=== PATIENT | female | born 1985 | race Caucasian/White ===

== ENCOUNTER 2016-12-30 13:05 | Emergency (ER) | payer MEDICAID ==
[~2016-12-30] VITALS: Ht 157.5 cm; Wt 101.6 kg
[2016-12-30 13:39] VITALS: BP 113/79
--- NOTE | 2016-12-30 14:10 | NUR ---
PT. PRESENTS TO THE ED WITH C/O REDNESS, IRRITATION, AND SMALL BUMPS BETWEEN AND UNDER BREASTS, PT. STATES SHE NOTICED IT STARTING 2-3 WEEKS AGO, NO VISIBLE SIGNS OF DISTRESS NOTED, BREATHING EVEN AND UNLABORED, AAOX4, AMBULATORY, GAIT STEADY
[2016-12-30 14:44] VITALS: BP 113/79
--- NOTE | 2016-12-30 14:45 | NUR ---
Patient discharged with v/s stable. Written and verbal after care instructions given and explained. Patient alert, oriented and verbalized understanding of instructions. Ambulatory with steady gait. All questions addressed prior to discharge. ID band removed. Patient advised to follow up with PMD. Rx of CLOTRIMAZOLE TOPICAL CREAM, KEFLEX, AND BACITRACIN TOPICAL OINTMENT given. Patient educated on indication of medication including possible reaction and side effects. Opportunity to ask questions provided and answered.
== END 2016-12-30 14:45 | disposition home or self-care (01) ==
LOC: MED 13:05
DX: L98.499 Non-pressure chronic ulcer of skin of other sites with unspecified severity (principal); J45.909 Unspecified asthma, uncomplicated
CPT/HCPCS: 81002; 81025; 99283

== ENCOUNTER 2017-06-10 15:03 | Emergency (ER) | payer SELFPAY ==
[~2017-06-10] VITALS: Ht 160 cm; Wt 96.6 kg
[2017-06-10 15:19] VITALS: BP 125/83
--- NOTE | 2017-06-10 16:07 | NUR ---
PT AMUBLUATED TO BED 7
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
--- NOTE | 2017-06-10 16:15 | NUR ---
Patient being evaluated by physician at bedside.
[2017-06-10] MEDS ORDERED: KETOROLAC 60 MG/2 ML VIAL IM ONE (16:20)
--- NOTE | 2017-06-10 16:37 | NUR ---
PT WENT TO X-RAY VIA WHEELCHAIR WITH CTRS.
[2017-06-10 17:15] VITALS: BP 119/72
--- NOTE | 2017-06-10 17:15 | NUR ---
Patient discharged with v/s stable. Written and verbal after care instructions given and explained. Patient alert, oriented and verbalized understanding of instructions. Ambulatory with steady gait. All questions addressed prior to discharge. ID band removed. Patient advised to follow up with PMD. Rx of TRAMADOL 50MG TABLETS given. Patient educated on indication of medication including possible reaction and side effects. Opportunity to ask questions provided and answered.
== END 2017-06-10 17:15 | disposition home or self-care (01) ==
LOC: MED 15:03
DX: S16.1XXA Strain of muscle, fascia and tendon at neck level, initial encounter (principal); R03.0 Elevated blood-pressure reading, without diagnosis of hypertension; J45.909 Unspecified asthma, uncomplicated; V49.49XA Driver injured in collision with other motor vehicles in traffic accident, initial encounter; Y93.89 Activity, other specified; Y92.89 Other specified places as the place of occurrence of the external cause; Y99.8 Other external cause status
CPT/HCPCS: 72040; 81025; 96372; 99284; J1885

== ENCOUNTER 2019-10-24 23:13 | Emergency (ER) | payer SELFPAY ==
[~2019-10-24] VITALS: Ht 157.5 cm; Wt 102.1 kg
[2019-10-24 23:17] VITALS: BP 100/59
--- NOTE | 2019-10-24 23:26 | NUR ---
PT AMBULATED MELBA
--- NOTE | 2019-10-24 23:30 | NUR ---
34/F PRESENTS TO ED, C/O SOB X2 DAYS. REPORTS COUGH X5 DAYS. PT AWAKE AND ALERT, SKIN NORMAL COLOR WARM AND DRY, RR EVEN AND MILDLY LABORED. MILD WHEEZE EXPIRATORY ON BL LUNGS. HX ASTHMA RX ALBUTEROL INH WITHOUT RELIEF
[2019-10-24] MEDS ORDERED: ALBUTEROL SULFATE/IPRATROPIU 3 ML SOL IH ONE (23:50)
[2019-10-25] MEDS ORDERED: predniSONE 20 MG TAB PO ONE (00:05)
[2019-10-25 00:30] VITALS: BP 132/87
--- NOTE | 2019-10-25 00:30 | NUR ---
Patient discharged with v/s stable. Written and verbal after care instructions given and explained. Patient alert, oriented and verbalized understanding of instructions. Ambulatory with steady gait. All questions addressed prior to discharge. ID band removed. Patient advised to follow up with PMD. Rx of PREDNISONE, ALBUTEROL WAS given. Patient educated on indication of medication including possible reaction and side effects. Opportunity to ask questions provided and answered. DR. CAMPOS ASSESSED AND D/C PT
== END 2019-10-25 00:30 | disposition home or self-care (01) ==
LOC: MED 23:13
DX: J45.901 Unspecified asthma with (acute) exacerbation (principal)
CPT/HCPCS: 94640; 99283; J7512; J7620

== ENCOUNTER 2020-09-03 08:24 | Emergency (ER) | payer SELFPAY ==
[~2020-09-03] VITALS: Ht 157.5 cm; Wt 99.3 kg
[2020-09-03 08:31] VITALS: BP 113/61
--- NOTE | 2020-09-03 08:35 | NUR ---
PT C/O SOB, PRODUCTIVE COUGH, CHEST CONGESTION FOR 5 DAYS. DENIES FEVER, N/V/D. REPORTS HAS EXPOSURE AT WORK. PMH: DENIES
[2020-09-03 09:14] VITALS: BP 110/58
--- NOTE | 2020-09-03 09:14 | NUR ---
Patient discharged with v/s stable. Written and verbal after care instructions given and explained. Patient alert, oriented and verbalized understanding of instructions. Ambulatory with steady gait. All questions addressed prior to discharge. ID band removed. Patient advised to follow up with PMD. Rx of Prednisone, Albuterol, AeroChamber plus mask given. Patient educated on indication of medication including possible reaction and side effects. Opportunity to ask questions provided and answered.
== END 2020-09-03 09:14 | disposition home or self-care (01) ==
LOC: MED 08:24
DX: J45.909 Unspecified asthma, uncomplicated (principal); F12.90 Cannabis use, unspecified, uncomplicated; Z20.828 Contact with and (suspected) exposure to other viral communicable diseases
CPT/HCPCS: 99283; U0003

== ENCOUNTER 2020-09-27 08:15 | Emergency (ER) | payer MEDICAID, SELFPAY ==
[~2020-09-27] VITALS: Ht 157.5 cm; Wt 97.5 kg
[2020-09-27] MEDS ORDERED: predniSONE 20 MG TAB PO ONE (08:40)
[2020-09-27] MEDS ORDERED: BENZONATATE 100 MG CAPLF PO SCH (08:40)
[2020-09-27 09:35] VITALS: BP 117/80
[2020-09-27 09:38] VITALS: BP 117/80
--- NOTE | 2020-09-27 09:38 | NUR ---
Patient discharged with v/s stable. Written and verbal after care instructions given and explained. Patient alert, oriented and verbalized understanding of instructions. Ambulatory with steady gait. All questions addressed prior to discharge. ID band removed. Patient advised to follow up with PMD. Rx of Prednisone, QVAR given. Patient educated on indication of medication including possible reaction and side effects. Opportunity to ask questions provided and answered.
== END 2020-09-27 09:38 | disposition home or self-care (01) ==
LOC: MED 08:15
DX: J45.901 Unspecified asthma with (acute) exacerbation (principal)
CPT/HCPCS: 71046; 99283; J7512

== ENCOUNTER 2021-05-09 15:04 | Emergency (ER) | payer MEDICAID ==
[~2021-05-09] VITALS: Ht 157.5 cm; Wt 99.3 kg
[2021-05-09 15:22] VITALS: BP 128/76
--- NOTE | 2021-05-09 15:32 | NUR ---
BIB SELF C/O 05/12 RLQ ABDOMINAL PAIN, NAUSEA X 2 DAYS. DENIES DYSURIA PMH: ASTHMA
[2021-05-09] MEDS ORDERED: fentaNYL citrate 0.05 MG/ML VIAL ONE (15:53)
[2021-05-09] MEDS ORDERED: KETOROLAC 30 MG/ML VIAL IM ONE (16:00)
[2021-05-09 16:59] LABS: BASOPHILS # (AUTO) 0.1 K/uL (0.00-0.22); BASOPHILS % (AUTO) 0.5 % (0.0-2.0); EOSINOPHILS # (AUTO) 0.1 K/uL (0-0.4); EOSINOPHILS % (AUTO) 1.4 % (0.0-4.0); HEMATOCRIT 38.9 % (36-48); HEMOGLOBIN 12.9 g/dL (12.0-16.0); LYMPHOCYTES # (AUTO) 1.3 K/uL (2.5-16.5); LYMPHOCYTES % (AUTO) 13.3 % (20.5-51.1); MEAN CORPUSCULAR HEMOGLOBIN 28 pg (27-31); MEAN CORPUSCULAR HGB CONC 33 g/dL (33-37); MEAN CORPUSCULAR VOLUME 83.1 fL (80-94); MONOCYTES # (AUTO) 0.7 K/uL (0.8-1.0); NEUTROPHILS # (AUTO) 7.6 K/uL (1.8-7.7); NEUTROPHILS % (AUTO) 77.8 % (42.2-75.2); PLATELET COUNT (AUTO) 307 K/uL (140-450); RED BLOOD CELL COUNT(AUTO) 4.68 MIL/uL (4.20-5.40); RED CELL DISTRIBUTION WIDTH 14.8 % (11.6-13.7); WHITE BLOOD COUNT (AUTO) 9.8 K/uL (4.8-10.8)
[2021-05-09 17:06] LABS: APPEARANCE,URINE SL CLOUDY (CLEAR); BILIRUBIN,URINE NEGATIVE (NEGATIVE); BLOOD, URINE TRACE-I (NEGATIVE); COLOR,URINE YELLOW (YELLOW); LEUKOCYTE ESTERASE ,URINE 1+ (NEGATIVE); NITRITE, URINE NEGATIVE (NEGATIVE); PH,URINE 6.5 (5.0-9.0); UGLUCOSE NEGATIVE (NEGATIVE)
[2021-05-09 17:15] LABS: ALBUMIN 3.5 g/dL (3.4-5.0); ANION GAP 12.7 (8-16); CARBON DIOXIDE 28.2 mmol/L (21-32); CREATININE 0.6 mg/dL (0.6-1.3); POTASSIUM 3.9 mmol/L (3.5-5.1); TOTAL BILIRUBIN 0.3 mg/dL (0.0-1.0)
[2021-05-09 17:31] LABS: RBC,URINE 0-5 /HPF (0-5); WBC,URINE 16-25 (MOD) /HPF (0-5)
[2021-05-09] MEDS ORDERED: ALBUTEROL HFA MDI 90 MCG/ACTUATION 8 GM INH ONE (17:50)
[2021-05-09] MEDS ORDERED: MORPHINE SULFATE 4 MG/ML SYR IM ONE (17:50)
--- NOTE | 2021-05-09 18:10 | NUR ---
Note francy in EDM - 05/09/21 at 1840 by DANN anxiety decreased, pain resolved to 11/12. Dr Arroyo spoke with patient at length. Agrees to discharge.
--- NOTE | 2021-05-09 18:30 | NUR ---
Note undone in EDM - 05/09/21 at 1840 by DANN Patient discharged with v/s stable. Written and verbal after care instructions given and explained. Patient alert, oriented and verbalized understanding of instructions. Ambulatory with steady gait. All questions addressed prior to discharge. ID band removed. Patient advised to follow up with PMD. Rx of Ativan, Protonix given. Patient educated on indication of medication including possible reaction and side effects. Opportunity to ask questions provided and answered.
--- NOTE | 2021-05-09 18:31 | NUR ---
PT AMBULATED TO ER BED 9.
--- NOTE | 2021-05-09 18:47 | NUR ---
first contact with this patient, patient is c/o epigastric pain, evaluation has been completed, medicated with Morphine 4mg IM RD, observed for effect and/or reaction.
--- NOTE | 2021-05-09 19:17 | NUR ---
Dr. Arroyo examining patient.
[2021-05-09] MEDS ORDERED: IBUP-2213 PO (19:23)
[2021-05-09] MEDS ORDERED: HYDR-5191 PO (19:23)
[2021-05-09] MEDS ORDERED: ALBU0.0912 IH ×2 (19:49→19:50)
[2021-05-09 20:44] VITALS: BP 126/81
--- NOTE | 2021-05-09 20:46 | NUR ---
Patient discharged with v/s stable. Written and verbal after care instructions given and explained. Patient alert, oriented and verbalized understanding of instructions. Ambulatory with steady gait. All questions addressed prior to discharge. ID band removed. Patient advised to follow up with PMD. Rx of VENTOLIN, MOTRIN, NORCO given. Patient educated on indication of medication including possible reaction and side effects. Opportunity to ask questions provided and answered.
== END 2021-05-09 20:46 | disposition home or self-care (01) ==
LOC: MED 15:04
DX: D36.7 Benign neoplasm of other specified sites (principal); R10.2 Pelvic and perineal pain
CPT/HCPCS: 36415; 74176; 76856; 80053; 81001; 81025; 85025; 87086; 93976; 96372; 99285; J1885; J2270; J3010

== ENCOUNTER 2021-05-24 03:47 | Emergency (ER) | payer MEDICAID ==
[~2021-05-24] VITALS: Ht 162.6 cm; Wt 99.3 kg
[~2021-05-24 03:47] MED LIST: ALBU0.0912 IH; HYDR-5191 PO; IBUP-2213 PO
[2021-05-24 03:53] VITALS: BP 136/69
[2021-05-24] MEDS: HYDROcodone/APAP 10/325 MG 1 TAB TAB PO ONE (04:47)
[2021-05-24] MEDS: KETOROLAC 60 MG/2 ML VIAL IM ONE (04:48)
[2021-05-24 05:06] VITALS: BP 136/69
--- NOTE | 2021-05-24 05:06 | NUR ---
Patient discharged with v/s stable. Written and verbal after care instructions given and explained. Patient verbalized understanding and states her transport to go home is in parking lot. Ambulatory with steady gait. All questions addressed prior to discharge. Advised to follow up with PMD.
== END 2021-05-24 05:06 | disposition home or self-care (01) ==
LOC: MED 03:47
DX: R10.2 Pelvic and perineal pain (principal); R19.09 Other intra-abdominal and pelvic swelling, mass and lump; J45.909 Unspecified asthma, uncomplicated; Z79.899 Other long term (current) drug therapy
CPT/HCPCS: 81002; 81025; 96372; 99283; J1885

== ENCOUNTER 2021-08-20 08:46 | Emergency (ER) | payer MEDICAID, OTHER ==
[~2021-08-20] VITALS: Ht 157.5 cm; Wt 100.7 kg
[2021-08-20 08:48] VITALS: BP 136/108
--- NOTE | 2021-08-20 09:13 | NUR ---
35yo f, with hx of left ovarian cyst, c/o hypogastric pain x 2 months with pain worsening yesterday. 8/10, sharp, non-radiating, that is felt like cramping/bloating/sharp like pain. Pt also complains of postprandial nausea. reports menstrual period shortened to 3-4 days from 5-7 days. no meds taken for pain. pt denies any SOB, chest pain, vomitting/diarrhea at this time. pt stated she has experinced pain before, but "stated this pain is worse than before." bowel sounds active at this time, but pt is gaudring and tenderness noted of abdomen lmp: jul 18, 2021 pmh: asthma, left ovarian cyst meds: none
--- NOTE | 2021-08-20 09:20 | NUR ---
us tech bedside with patient
--- NOTE | 2021-08-20 09:26 | NUR ---
BEDSIDE EVALUATING PT
[2021-08-20] MEDS ORDERED: HYDROcodone/APAP 5/325 MG 1 TAB TAB PO ONE (09:30)
[2021-08-20] MEDS ORDERED: KETOROLAC 30 MG/ML VIAL IM ONE (09:30)
--- NOTE | 2021-08-20 10:17 | NUR ---
PT STATED PAIN RELIEF FROM MEDICATIONS AND CURRENT PAIN IS 1/10
[2021-08-20] MEDS ORDERED: NAPR-54 PO (11:20)
[2021-08-20] MEDS ORDERED: ACET-8386 PO (11:20)
--- NOTE | 2021-08-20 11:21 | NUR ---
Patient appears to be resting comfortably in bed. Vital Signs within normal limits. Respirations even and unlabored.
[2021-08-20 11:31] VITALS: BP 105/63
--- NOTE | 2021-08-20 11:31 | NUR ---
Patient discharged with v/s stable. Written and verbal after care instructions given and explained. Patient alert, oriented and verbalized understanding of instructions. Ambulatory with steady gait. All questions addressed prior to discharge. ID band removed. Patient advised to follow up with PMD. Rx of NAPROXEN AND HYROCODONE/ACETAMINOPHEN given. Patient educated on indication of medication including possible reaction and side effects. Opportunity to ask questions provided and answered.
== END 2021-08-20 11:31 | disposition home or self-care (01) ==
LOC: MED 08:46
DX: N83.202 Unspecified ovarian cyst, left side (principal); J45.909 Unspecified asthma, uncomplicated; F12.90 Cannabis use, unspecified, uncomplicated; Z79.899 Other long term (current) drug therapy
CPT/HCPCS: 76830; 76856; 81002; 81025; 93976; 96372; 99284; J1885; Q0092

== ENCOUNTER 2022-03-31 15:05 | Emergency (ER) | payer OTHER ==
[~2022-03-31] VITALS: Ht 157.5 cm; Wt 104.3 kg
[~2022-03-31 15:05] MED LIST changes: +ACET-8386 PO; +NAPR-54 PO
[2022-03-31 15:28] VITALS: BP 119/77
[2022-03-31] MEDS ORDERED: ALBU0.0912 IH (15:50)
[2022-03-31] MEDS ORDERED: SUD30 PO (15:50)
[2022-03-31] MEDS ORDERED: [UNRECOGNIZED DRUG - CODE] NS (16:01)
[2022-03-31 16:27] VITALS: BP 112/74
--- NOTE | 2022-03-31 16:28 | NUR ---
Patient discharged with v/s stable. Written and verbal after care instructions given and explained. Patient alert, oriented and verbalized understanding of instructions. Ambulatory with steady gait. All questions addressed prior to discharge. ID band removed. Patient advised to follow up with PMD. Rx of PROVENTIL, NASAL DECONGESTANT, SUDAFED given. Patient educated on indication of medication including possible reaction and side effects. Opportunity to ask questions provided and answered.
== END 2022-03-31 16:27 | disposition home or self-care (01) ==
LOC: MED 15:05
DX: R09.81 Nasal congestion (principal); J45.909 Unspecified asthma, uncomplicated; Z76.0 Encounter for issue of repeat prescription
CPT/HCPCS: 99283

== ENCOUNTER 2023-01-04 12:53 | Emergency (ER) | payer OTHER ==
[~2023-01-04] VITALS: Ht 157.5 cm; Wt 111.1 kg
[~2023-01-04 12:53] MED LIST changes: -ACET-8386 PO; +ACET-8905 PO; +SUD30 PO; +[UNRECOGNIZED DRUG - CODE] NS
[2023-01-04 13:06] VITALS: BP 122/63
--- NOTE | 2023-01-04 13:09 | NUR ---
PATIENT AMBULATED TO BED 6.
--- NOTE | 2023-01-04 13:36 | NUR ---
MD at bedside evaluating the patient
[2023-01-04] MEDS ORDERED: ALBUTEROL 0.083% 2.5 MG/3 ML NEBU INH ONE (13:40)
[2023-01-04] MEDS ORDERED: IPRATROPIUM 0.02% 0.5 MG/2.5 ML NEBU INH ONE (13:40)
[2023-01-04] MEDS ORDERED: predniSONE 20 MG TAB PO ONE (13:40)
[2023-01-04] MEDS ORDERED: [UNRECOGNIZED DRUG - CODE] PO (14:04)
[2023-01-04] MEDS ORDERED: ALBU0.0912 INH (14:04)
[2023-01-04] MEDS ORDERED: PRED20TA5 PO (14:04)
[2023-01-04 14:27] VITALS: BP 122/63
--- NOTE | 2023-01-04 14:28 | NUR ---
Patient discharged with v/s stable. Written and verbal after care instructions given and explained. Patient alert, oriented and verbalized understanding of instructions. Ambulatory with steady gait. All questions addressed prior to discharge. ID band removed. Patient advised to follow up with PMD. Rx of albuterol, cetirizine, prednisone given. Patient educated on indication of medication including possible reaction and side effects. Opportunity to ask questions provided and answered.
== END 2023-01-04 14:28 | disposition home or self-care (01) ==
LOC: MED 12:53
DX: J45.901 Unspecified asthma with (acute) exacerbation (principal); R03.0 Elevated blood-pressure reading, without diagnosis of hypertension
CPT/HCPCS: 94640; 94760; 99283; J7512; J7613; J7644

== ENCOUNTER 2023-07-15 03:55 | Emergency (ER) | payer OTHER ==
[~2023-07-15] VITALS: Ht 157.5 cm; Wt 99.8 kg
[~2023-07-15 03:55] MED LIST changes: +ALBU0.0912 INH; +PRED20TA5 PO; +[UNRECOGNIZED DRUG - CODE] PO
[2023-07-15 04:03] VITALS: BP 118/63; PULSE 80; RESP 16; TEMP 96.8; O2SAT 100
[2023-07-15] MEDS ORDERED: diphenhydrAMINE 50 MG/ML VIAL IVP ONE (04:15)
[2023-07-15] MEDS ORDERED: NACL 0.9% 2,000 ML IV ONE (04:15)
[2023-07-15] MEDS ORDERED: KETOROLAC 30 MG/ML VIAL IVP ONE (04:15)
[2023-07-15] MEDS ORDERED: PROCHLORPERAZINE 10 MG/2 ML VIAL IVP ONE (04:15)
[2023-07-15 04:54] LABS: BASOPHILS # (AUTO) 0.1 K/uL (0.00-0.22); BASOPHILS % (AUTO) 0.7 % (0.0-2.0); EOSINOPHILS % (AUTO) 0.3 % (0.0-4.0); HEMATOCRIT 36.7 % (36-48); HEMOGLOBIN 12.1 g/dL (12.0-16.0); LYMPHOCYTES # (AUTO) 2.5 K/uL (2.5-16.5); LYMPHOCYTES % (AUTO) 17.7 % (20.5-51.1); MEAN CORPUSCULAR HEMOGLOBIN 25 pg (27-31); MEAN CORPUSCULAR HGB CONC 33 g/dL (33-37); MEAN CORPUSCULAR VOLUME 74.5 fL (80-94); MONOCYTES # (AUTO) 0.6 K/uL (0.8-1.0); MONOCYTES % (AUTO) 3.9 % (1.7-9.3); NEUTROPHILS # (AUTO) 11.1 K/uL (1.8-7.7); NEUTROPHILS % (AUTO) 77.4 % (42.2-75.2); PLATELET COUNT (AUTO) 438 K/uL (140-450); RED BLOOD CELL COUNT(AUTO) 4.93 MIL/uL (4.20-5.40); RED CELL DISTRIBUTION WIDTH 16.6 % (11.6-13.7); WHITE BLOOD COUNT (AUTO) 14.3 K/uL (4.8-10.8)
[2023-07-15 05:09] LABS: ANION GAP 22.9 (8-16); CALCIUM 9.6 mg/dL (8.5-10.1); CARBON DIOXIDE 22.9 mmol/L (21-32); CREATININE 0.8 mg/dL (0.6-1.3); POTASSIUM 3.8 mmol/L (3.5-5.1); TOTAL BILIRUBIN 0.5 mg/dL (0.0-1.0)
[2023-07-15 07:05] LABS: APPEARANCE,URINE CLEAR (CLEAR); BILIRUBIN,URINE NEGATIVE (NEGATIVE); BLOOD, URINE NEGATIVE (NEGATIVE); COLOR,URINE YELLOW (YELLOW); LEUKOCYTE ESTERASE ,URINE NEGATIVE (NEGATIVE); NITRITE, URINE NEGATIVE (NEGATIVE); PROTEIN,URINE 1+ (NEGATIVE); UGLUCOSE NEGATIVE (NEGATIVE); UROBILINOGEN,URINE 0.2 EU/dL (0.2 - 1)
[2023-07-15 07:27] LABS: AMPHETAMINE, URINE NEGATIVE ng/ml (NEG <=1000); BARBITURATE, URINE NEGATIVE ng/ml (NEG <=200); BENZODIAZEPINE, URINE NEGATIVE ng/mL (NEG <=200); CANNABINOID, URINE POSITIVE ng/mL (NEG <=50); COCAINE, URINE NEGATIVE ng/mL (NEG <=300); OPIATE, URINE NEGATIVE ng/mL (NEG <=2000); PHENCYCLIDINE SCREEN,URINE NEGATIVE ng/mL (NEG <=25)
[2023-07-15 07:37] VITALS: O2SAT 96
[2023-07-15] MEDS ORDERED: ONDANSETRON 4 MG/2 ML VIAL IVP ONE (07:50)
[2023-07-15] MEDS ORDERED: ONDA-188 SL (07:57)
[2023-07-15 08:16] VITALS: BP 118/66; PULSE 79; RESP 23; TEMP 96.8; O2SAT 100
== END 2023-07-15 08:18 | disposition home or self-care (01) ==
LOC: MED 03:55
DX: R11.2 Nausea with vomiting, unspecified (principal); Z20.822 Contact with and (suspected) exposure to COVID-19; D72.829 Elevated white blood cell count, unspecified; F12.90 Cannabis use, unspecified, uncomplicated; J45.909 Unspecified asthma, uncomplicated; Z79.899 Other long term (current) drug therapy
CPT/HCPCS: 36415; 80053; 80305; 81003; 81025; 83690; 85025; 87426; 96361; 96374; 96375; 99285; J0780; J1200; J1885; J2405; J7030

== ENCOUNTER 2023-11-14 14:37 | Emergency (ER) | payer OTHER ==
[~2023-11-14] VITALS: Ht 157.5 cm; Wt 88.5 kg
[~2023-11-14 14:37] MED LIST changes: +CETI1TAB68 PO; +ONDA-188 SL; -[UNRECOGNIZED DRUG - CODE] PO
[2023-11-14 14:49] VITALS: BP 110/71; PULSE 99; RESP 19; TEMP 97.2; O2SAT 98
[2023-11-14] MEDS: LORATADINE 10 MG TAB PO ONE (15:38)
[2023-11-14] MEDS: IBUPROFEN 600 MG TAB PO ONE (15:39)
[2023-11-14] MEDS: FAMOTIDINE 20 MG TAB PO ONE (15:40)
[2023-11-14] MEDS: ONDANSETRON 4 MG ODT PO ONE (15:40)
[2023-11-14] MEDS ORDERED: GUAI10LI4 PO (17:00)
[2023-11-14] MEDS ORDERED: IBUP-2213 PO (17:00)
[2023-11-14] MEDS ORDERED: LORA10TA19 PO (17:00)
[2023-11-14] MEDS ORDERED: PSEU120T22 PO (17:00)
[2023-11-14 17:29] VITALS: BP 99/54; PULSE 84; RESP 18; TEMP 97.2; O2SAT 98
[2023-11-14 17:40] LABS: FLU B ANTIGEN NEGATIVE (NEGATIVE)
[2023-11-14 17:42] LABS: FLU A ANTIGEN POSITIVE (NEGATIVE)
== END 2023-11-14 17:29 | disposition home or self-care (01) ==
LOC: MED 14:37
DX: J10.1 Influenza due to other identified influenza virus with other respiratory manifestations (principal); Z20.822 Contact with and (suspected) exposure to COVID-19; Z79.899 Other long term (current) drug therapy
CPT/HCPCS: 81002; 81025; 87426; 87804; 99284; Q0162

== ENCOUNTER 2024-01-10 12:05 | Emergency (ER) | payer OTHER ==
[~2024-01-10] VITALS: Ht 157.5 cm; Wt 86.2 kg
[~2024-01-10 12:05] MED LIST changes: +GUAI10LI4 PO; +LORA10TA19 PO; +PSEU120T22 PO
[2024-01-10 12:21] VITALS: BP 105/66; PULSE 74; RESP 16; TEMP 97.7; O2SAT 98
[2024-01-10] MEDS ORDERED: IBUPROFEN 600 MG TAB PO SCH (12:50)
[2024-01-10] MEDS: IBUPROFEN 600 MG TAB PO ONE (12:59)
[2024-01-10] MEDS ORDERED: IBUP-2213 PO (13:45)
== END 2024-01-10 14:07 | disposition home or self-care (01) ==
LOC: MED 12:05
DX: S63.681A Other sprain of right thumb, initial encounter (principal); Z79.899 Other long term (current) drug therapy; W01.198A Fall on same level from slipping, tripping and stumbling with subsequent striking against other object, initial encounter; Y93.89 Activity, other specified; Y92.89 Other specified places as the place of occurrence of the external cause; Y99.8 Other external cause status
CPT/HCPCS: 73110; 73130; 81025; 96372; 99284

== ENCOUNTER 2024-03-07 13:30 | Emergency (ER) | payer OTHER ==
[~2024-03-07] VITALS: Ht 157.5 cm; Wt 90.7 kg
[~2024-03-07 13:30] MED LIST changes: +HYDR-5071 PO; -HYDR-5191 PO; +NAPR-337 PO; -NAPR-54 PO
[2024-03-07 13:35] VITALS: PULSE 74; RESP 16; TEMP 98; O2SAT 74
[2024-03-07] MEDS: ACETAMINOPHEN EXTRA STRENGTH 500 MG TAB PO ONE (14:22)
[2024-03-07] MEDS ORDERED: IBUP-2213 PO (14:28)
== END 2024-03-07 14:37 | disposition home or self-care (01) ==
LOC: MED 13:30
DX: M25.562 Pain in left knee (principal); J45.909 Unspecified asthma, uncomplicated; Z79.1 Long term (current) use of non-steroidal anti-inflammatories (NSAID); Z79.899 Other long term (current) drug therapy
CPT/HCPCS: 73562; 81025; 99283